=== PATIENT | female | born 2000 | race Caucasian/White ===

== ENCOUNTER 2020-06-18 08:51 | Outpatient (CLI) | payer BC ==
--- NOTE | 2020-06-18 09:11 | RAD ---
EXAM: 2 views of the abdomen HISTORY: Gas and bloating with abdominal pain COMPARISON: None FINDINGS: 2 views of the abdomen shows a nonspecific, nonobstructive bowel gas pattern. No free air o r air-fluid levels are seen on upright examination. No suspicious calcifications are seen. The bones are unremarkable. IMPRESSION: No evidence of bowel obstruction.
== END 2020-06-18 08:52 | disposition home or self-care (01) ==
LOC: SCSRAD 08:51
PROVIDERS: ATTEND Internal Medicine Gastroenterology
DX: R14.0 Abdominal distension (gaseous) (principal); R19.4 Change in bowel habit
CPT/HCPCS: 74019